=== PATIENT | male | born 1990 | race Caucasian/White ===

== ENCOUNTER 2025-05-09 21:19 | Emergency (ER) | payer MEDICAID, SELFPAY ==
--- NOTE | ~2025-05-09 | CT_ITS ---
CLINICAL HISTORY: RLQ pain CT abdomen and pelvis with contrast Comparison: None provided. Findings: No consolidation or effusion. The liver, spleen, gallbladder, and bilateral adrenal glands are within normal limits for appearance. There is mild edema near the pancreatico duodenal groove with mild bowel wall thickening involving the proximal duodenal sweep in this region. The edema appears to be more centered on the duodenum. No hydronephrosis or hydroureter. No bowel obstruction, pneumoperitoneum, or pneumatosis. Pelvic contents unremarkable. The bladder is minimally distended with fluid, limiting its evaluation. A tiny amount of fat is identified within the bilateral inguinal canals. Normal appendix. No acute fracture visualized. IMPRESSION: 1. Mild edema identified near the pancreatico duodenal groove with mild duodenal wall thickening in this region. The edema does appear to be slightly more centered on the duodenum, suggesting an underlying duodenitis or duodenal ulcer disease. A mild reactive pancreatitis is not excluded. May consider correlation with laboratory values for further evaluation. 2. Normal appendix. This document has been electronically signed by: Albert Beyer MD on 05/10/2025 01:44:45
[2025-05-09 21:25] VITALS: BP 135/103; PULSE 107; RESP 20; TEMP 36.5; O2SAT 97; BMI 31.2
[2025-05-09 21:44] LABS: MANUAL DIFF FLAG NO
[2025-05-09 21:46] LABS: Hematocrit 45.4 % (42.0-52.0); Hemoglobin 16.5 g/dl (14.0-18.0); Imm Gran Abs Auto 0.02 X10*3/uL (0.00-0.03); Imm Gran Pct Auto 0.2 % (0.0-0.4); Lymphocytes Absolute Auto 2.1 X10*3/uL (1.2-4.9); Mean Corpuscular HGB Conc 36.3 g/dl (31.0-36.0); Mean Corpuscular Hemoglobin 29.8 pg (27.0-33.0); Mean Corpuscular Volume 82.1 fL (80.0-98.0); NRBC Abs Auto 0.000 X10*3/uL (0.0-0.012); NRBC Pct Auto 0.0 /100WBC (0.0-0.2); Platelet Count 220 X10*3/uL (160-400); Red Blood Count 5.53 X10*6/uL (4.60-5.80); White Blood Count 8.6 X10*3/uL (4.8-10.8)
[2025-05-09 21:58] LABS: Alanine Aminotransferase 37 U/L (0-40); Albumin Level 4.7 g/dL (3.5-5.0); Alkaline Phosphatase 77 U/L (39-117); Anion Gap 13 (12-20); Aspartate Amino Transferase 26 U/L (5-37); Blood Urea Nitrogen 13 mg/dL (9-16); Calcium 9.7 mg/dL (8.4-10.2); Carbon Dioxide 29 mmol/L (22-29); Chloride 103 mmol/L (96-108); Creatinine Clr Calc Pharmacy 103.6; Estimated Glomerular Filt Rate > 60; Potassium 4.0 mmol/L (3.3-5.1); Sodium 141 mmol/L (135-145); Total Protein 7.8 g/dL (6.5-8.0)
--- NOTE | 2025-05-10 00:22 | ED_ITS ---
HPI - Abdominal Pain General Chief Complaint: Abdominal Pain Stated Complaint: Abd pain since last wednesday Time Seen by Provider: 05/10/25 00:13 Source: patient Mode of arrival: ambulatory Limitations: no limitations History of Present Illness ED Provider: Dr. Stella Malone HPI narrative: patient comes to the emergency room complaining of nausea, vomiting and right lower quadrant pain for couple of days. Patient states that his friends gave him oxycodone and gabapentin to try to help relieve the pain. Patient states that it is not helping. Patient denies constipation, denies history of kidney stones. Patient states that he is otherwise healthy. Denies diarrhea. Denies fever chills hematuria or dysuria. Related Data Allergies Allergy/AdvReac Type Severity Reaction Status Date / Time No Known Allergies Allergy Verified 05/09/25 21:26 Review of Systems Review of Systems Constitutional : No Weight loss, No Fever, No Chills, No Night Sweats, No Fatigue, No Malaise ENT/Mouth : No Hearing loss, No Ear Pain, No Nasal Congestion, No Sinus Pain, No Hoarseness, No sore throat, No Rhinorrhea, No Swallowing Difficulty Eyes: No Eye Pain, No Swelling, No Redness, No Foreign Body, No Discharge, No Vision Changes Cardiovascular : No Chest Pain, No SOB, No Dyspnea on Exertion, No Orthopnea, No Edema, No Palpitations Respiratory : No Cough, No Sputum, No Wheezing, No Smoke Exposure, No Dyspnea Gastrointestinal : Complaining of nausea vomiting, denies diarrhea or constipation, complaining of periumbilical, epigastric, right flank and right lower quadrant pain Genitourinary : no irregular bleeding, No Dysuria, No Urinary Frequency, No Hematuria, No Urinary Incontinence, No Urgency, No Flank Pain, No Urinary Flow Changes, No Hesitancy Musculoskeletal : No joint pain, No Myalgias, No Joint Swelling Skin : No Skin Lesions, No rash Neuro : No Weakness, No Numbness, No Paresthesias, No Loss of Consciousness, No Dizziness, No Headache Psych : No Anxiety/Panic, No Depression, No SI/HI/AH/VH, No Social Issues, Heme/Lymph: No Bruising, No Bleeding,No Lymphadenopathy Endocrine : No Polyuria, No Polydipsia, No Temperature Intolerance PMFSH Social History Social History (System 08/16/23 @ 14:56 by Rosemary Meyer) Advance Directives: No Advance Directives Information Provided: Yes Physical Exam ED Vital Signs: Vital Signs - 24 hr 05/09/25 21:25 Temperature 97.7 F Pulse Rate 107 H Respiratory Rate 20 Blood Pressure 135/103 H Pulse Oximetry 97 Oxygen Delivery Method Room Air BMI result Body Mass Index 31.2 Const Other: Appearance: Alert. Oriented X3. patient looks uncomfortable Eyes: Pupils equal, round and reactive to light. ENT: Pharynx normal. Neck: Normal inspection. Neck supple. No lymph nodes noted. No crepitus CVS: Normal heart rate and rhythm. Pulses normal. Normal S1 and S2 Respiratory: No respiratory distress. Breath sounds normal. No Wheezing. No rales Abdomen: Soft , nondistended, tenderness to palpation in the epigastric area, periumbilical and right lower quadrant. No rebound or guarding, no peritoneal signs. Mild CVA tenderness. Skin: Skin warm and dry. Normal skin color. Normal skin turgor. Extremities: No lower extremity edema. No Lacerations. No Rash Neuro: Oriented X 3. No motor deficit. No sensory deficit. Moving all extremities. No slurred speech. CN 2 through 12 grossly intact Psych: calm, cooperative, normal affect Course Course Course Narrative: Patient complaining of right abdominal pain including epigastric right flank periumbilical and right lower quadrant. Patient complaining of multiple episodes of vomiting, no diarrhea or constipation. Patient has been self medicating with oxycodone and gabapentin which were provided by friends. patient receiving IV fluids, Zofran, ketorolac CT scan pending Medical Decision Making Medical Decision Making [facility] Narrative: my interpretation of labs: Normal white blood cell count, 8.6, normal hematology, normal chemistry, normal LFTs and lipase pending: CT scan of the abdomen /pelvis urinalysis of note, soon we will be going on down time, please follow-up with paper chart for results Patient was discharged with paper forms. Scripts were also given to the patient, patient got a prescription for sucralfate and omeprazole. Differential Diagnosis Differential Diagnoses: The differential diagnosis associated with the presentation includes (Gastritis, gastroenteritis, pancreatitis, perforated ulcer, acute cholecystitis) Admission/Observation Consideration of admission/observation: Escalation of care including admission/observation considered ( given the patient's symptoms and presentation, observation/ admission was considered.) Lab Data [facility] Lab Attestation statement: I reviewed the patient's lab results. 05/09/25 21:40 05/09/25 21:40 Labs: Lab Results 05/09/25 Range/Units 21:40 WBC 8.6 (4.8-10.8) X10*3/uL RBC 5.53 (4.60-5.80) X10*6/uL Hgb 16.5 (14.0-18.0) g/dl Hct 45.4 (42.0-52.0) % MCV 82.1 (80.0-98.0) fL MCH 29.8 (27.0-33.0) pg MCHC 36.3 H (31.0-36.0) g/dl RDW 12.6 (11.0-16.0) % Plt Count 220 (160-400) X10*3/uL MPV 9.1 L (9.4-12.4) fL Immature Gran % (Auto) 0.2 (0.0-0.4) % Neut % (Auto) 68.5 (45-73) % Lymph % (Auto) 24.8 (20-40) % [place] % (Auto) 6.0 (2-11) % Eos % (Auto) 0.2 (0-4) % Baso % (Auto) 0.3 (0-2) % Lymph # (Auto) 2.1 (1.2-4.9) X10*3/uL [place] # (Auto) 0.5 (0.1-1.2) X10*3/uL Eos # (Auto) 0.0 (0.0-0.4) X10*3/uL Baso # (Auto) 0.0 (0.0-0.2) X10*3/uL Abs Immat Gran (auto) 0.02 (0.00-0.03) X10*3/uL Absolute Neuts (auto) 5.9 (2.0-8.3) x10*3/uL Absolute Nucleated RBC 0.000 (0.0-0.012) X10*3/uL Nucleated RBC % (auto) 0.0 (0.0-0.2) /100WBC Sodium 141 (135-145) mmol/L Potassium 4.0 (3.3-5.1) mmol/L Chloride 103 (96-108) mmol/L Carbon Dioxide 29 (22-29) mmol/L Anion Gap 13 (12-20) BUN 13 (9-16) mg/dL Creatinine 1.23 (0.5-1.4) mg/dL Estim Creat Clear Calc 103.6 Estimated GFR > 60 Random Glucose 104 (60-115) mg/dL Calcium 9.7 (8.4-10.2) mg/dL Total Bilirubin 0.7 (0.0-1.0) mg/dL AST 26 (5-37) U/L ALT 37 (0-40) U/L Alkaline Phosphatase 77 (39-117) U/L Total Protein 7.8 (6.5-8.0) g/dL Albumin 4.7 (3.5-5.0) g/dL Lipase 18 (8-78) U/L Independent Interpretation I performed an independent interpretation of an: CT Scan Radiology Impression Discussion of test interpretation with radiology: I have reviewed the radiologist's reading. Radiologist Impression: 1. Mild edema identified near the pancreatico duodenal groove with mild duodenal wall thickening in this region. The edema does appear to be slightly more centered on the duodenum, suggesting an underlying duodenitis or duodenal ulcer disease. A mild reactive pancreatitis is not excluded. May consider correlation with laboratory values for further evaluation. 2. Normal appendix Medications Administered Discontinued Medications Generic Name Dose Route Start Last Admin Trade Name Freq PRN Reason Stop Dose Admin Sodium Chloride 1,000 mls @ 999 mls/hr 05/10/25 00:21 05/10/25 00:28 Ns IVCONT 05/10/25 01:21 999 mls/hr .Q1H1M ONE Administration Iohexol 85 ml 05/10/25 00:57 05/10/25 00:57 Iohexol 350 Mg/Ml 100 Ml Infus..Btl IV 05/10/25 00:58 85 ml ONCE ONE Administration Ketorolac Tromethamine 30 mg 05/10/25 00:21 05/10/25 00:30 Ketorolac Tromethamine 30 Mg/Ml Vial IVPUSH 05/10/25 00:22 30 mg ONCE ONE Administration Ondansetron HCl 4 mg 05/10/25 00:21 05/10/25 00:30 Ondansetron Hcl 4 Mg/2 Ml Vial IVPUSH 05/10/25 00:22 4 mg ONCE ONE Administration Critical Care Time Critical Care Time Critical Care Time: Yes Total Critical Care Time: 45 Attestation: I have personally provided critical care time. Time includes review of lab data, radiology results, discussion with consultants, and monitoring for potential decompensation. Intervention performed as documented. Discharge Plan Discharge Clinical Impression: Duodenitis Patient Disposition: Home, Self-Care Instructions: Diet for Stomach Ulcers and Gastritis (ED), Duodenitis (ED) Print Language: Divehi
[2025-05-10 00:27] LABS: Lipase 18 U/L (8-78)
[2025-05-10] MEDS: iohexoL 350 MG/ML 100 ML INFUS..BTL 85 ML IV (00:57)
[2025-05-10 05:00] VITALS: BP 135/103; PULSE 107; RESP 20; TEMP 36.5; O2SAT 97
[2025-05-10 06:13] LABS: Appearance Urine Clear; Glucose Urine UA Negative (Negative); PH 7.5 (5.0-9.0); Specific Gravity - Urine <= 1.005 (1.005-1.025)
== END 2025-05-10 05:00 | disposition home or self-care (01) ==
PROVIDERS: Emergency Provider Emergency Medicine
DX: K29.80 Duodenitis without bleeding (principal); R10.31 Right lower quadrant pain; R11.2 Nausea with vomiting, unspecified; R10.13 Epigastric pain; R10.33 Periumbilical pain; Z79.899 Other long term (current) drug therapy
CPT/HCPCS: 36415; 74177; 80053; 81003; 83690; 85025; 96361; 96374; 96375; 99284; 99291; J1885; J2405; Q9967

== ENCOUNTER → 2025-05-10 00:21 | Outpatient (BNV) | payer SELFPAY | PROVIDERS: Emergency Provider Emergency Medicine; Visit Provider Radiology Diagnostic Radiology | DX: R10.31 Right lower quadrant pain (principal) | CPT/HCPCS: 74177 ==